=== PATIENT | male | born 1965 | race Caucasian/White ===

== ENCOUNTER 2021-10-06 02:27 | Emergency (ER) | payer BC ==
[~2021-10-06] VITALS: Ht 177.8 cm; Wt 73.5 kg
--- NOTE | 2021-10-06 02:47 | NUR ---
Called [facility], spoke with Shoaib, instructed on observation for any symptoms and supportive measures. made aware of instructions.
--- NOTE | 2021-10-06 02:48 | NUR ---
Dr. To at bedside for MSE.
--- NOTE | 2021-10-06 03:33 | NUR ---
Patient eloped from facility. ER physician notified. Pt stated that he feels fine and doesn't want to wait anymore, "If I , it's my fault."
== END 2021-10-06 03:35 | disposition left against medical advice (07) ==
LOC: ER 02:52
DX: T63.2X1A Toxic effect of venom of scorpion, accidental (unintentional), initial encounter (principal); Y92.012 Bathroom of single-family (private) house as the place of occurrence of the external cause
CPT/HCPCS: A4663